=== PATIENT | male | born 1965 | race Two or more races ===

== ENCOUNTER 2021-06-14 04:58 | Emergency (ER) | payer OTHER, SELFPAY ==
[~2021-06-14] VITALS: Ht 172.7 cm; Wt 95.8 kg
--- NOTE | 2021-06-14 06:06 | NUR ---
PT. TO ROOM FROM LOBBY AT THIS TIME.
[2021-06-14 06:17] VITALS: BP 149/108
[2021-06-14] MEDS ORDERED: KETOROLAC 30 MG/1 ML IM ONE (06:30)
[2021-06-14] MEDS ORDERED: HYDROcodone/APAP 5/325 TABLET PO ONE (06:30)
[2021-06-14] MEDS ORDERED: ONDANSETRON ODT 4 MG PO ONE (06:30)
[2021-06-14] MEDS ORDERED: KETOROLAC 30 MG/1 ML ONE (06:31)
[2021-06-14] MEDS ORDERED: ONDANSETRON ODT 4 MG ONE (06:31)
[2021-06-14] MEDS ORDERED: HYDROcodone/APAP 5/325 TABLET ONE (06:31)
--- NOTE | 2021-06-14 08:53 | NUR ---
Patient given discharge instructions and they have confirmed that they understand the instructions. Patient ambulatory with steady gait.
== END 2021-06-14 08:54 | disposition home or self-care (01) ==
LOC: ED 08:06
DX: H60.313 Diffuse otitis externa, bilateral (principal); H60.333 Swimmer's ear, bilateral
CPT/HCPCS: 99283; J1885; Q0162